=== PATIENT | male | born 1960 | race African-American/Black ===

== ENCOUNTER 2019-10-03 02:10 | Emergency (ER) | payer MEDICAID ==
[~2019-10-03] VITALS: Ht 167.6 cm; Wt 69.0 kg
[2019-10-03 02:23] VITALS: BP 113/83
== END 2019-10-03 07:43 | disposition left against medical advice (07) ==
LOC: ER 02:10
DX: Z53.21 Procedure and treatment not carried out due to patient leaving prior to being seen by health care provider (principal)

== ENCOUNTER 2019-10-13 01:58 | Emergency (ER) | payer MEDICAID ==
[~2019-10-13] VITALS: Ht 172.7 cm; Wt 75.0 kg
[2019-10-13 02:10] VITALS: BP 137/85
== END 2019-10-13 04:39 | disposition home or self-care (01) ==
LOC: ER 01:58
DX: Z76.0 Encounter for issue of repeat prescription (principal); F20.9 Schizophrenia, unspecified
CPT/HCPCS: 99283